=== PATIENT | male | born 1965 | race Caucasian/White ===

== ENCOUNTER 2016-03-24 13:04 | Emergency (ER) | payer OTHER ==
[~2016-03-24] VITALS: Ht 172.7 cm; Wt 71.4 kg
[~2016-03-24 13:04] MED LIST: OXYCODONE HCL5 MG PO; OXYCODONE-APAP1 EACH PO; PERCOCET 5/31 TABLET PO; ULTRAM50 MG PO
[2016-03-24 15:04] LABS: HEMATOCRIT 37.8 % (38.0-50.0); MCH 28.2 PG (29.0-34.0); MCHC 33.1 G/DL (30.0-36.0); MCV 85.3 FL (86-99); MEAN PLAT.VOLUME 9.8 uM^3 (9.0-12.4); PLATELET COUNT 280 K/uL (156-360); RBC DIS.WIDTH-CV 15.1 % (11.8-14.6); RBC DIS.WIDTH-SD 46.5 % (39-53); RED BLOOD COUNT 4.43 M/uL (4.00-5.50); WHITE BLOOD COUNT 20.1 K/uL (4.1-10.2)
[2016-03-24 15:16] LABS: CHLORIDE 102 mEq/L (99-109); POTASSIUM 4.4 mEq/L (3.7-5.4); SODIUM 135 mEq/L (136-147)
[2016-03-24 15:18] LABS: GLUCOSE 115 mg/dL (70-99)
[2016-03-24 15:19] LABS: ANION GAP 10 MEQ/L (2-14)
[2016-03-24 15:22] LABS: GFR ESTIMATE (CALCULATED) > 59 mL/min/
[2016-03-24 15:23] LABS: UREA NITROGEN (BUN) 7 mg/dL (9-23)
[2016-03-24] MEDS ORDERED: DOXYCYCLINE HY100 MG PO (17:59)
[2016-03-24] MEDS ORDERED: NORCO 5/3251 TABLET PO (17:59)
[2016-03-24] MEDS ORDERED: PERCOCET 5/31 TABLET PO (18:05)
[2016-03-24 18:25] VITALS: BP 125/58
== END 2016-03-24 18:26 | disposition home or self-care (01) ==
LOC: EME 13:04
PROVIDERS: Emergency Medicine
PROC: 0H9DXZZ Drainage of Right Lower Arm Skin, External Approach (ICD-10-PCS; principal; 2016-03-24)
DX: L02.413 Cutaneous abscess of right upper limb (principal); F17.200 Nicotine dependence, unspecified, uncomplicated
CPT/HCPCS: 76882; 80048; 83605; 85027; 99281; 99285; J1170; J7050

== ENCOUNTER 2016-10-01 14:46 | Emergency (ER) | payer OTHER ==
[~2016-10-01] VITALS: Ht 172.7 cm; Wt 70.0 kg
[~2016-10-01 14:46] MED LIST changes: +DOXYCYCLINE HY100 MG PO; +NORCO 5/3251 TABLET PO
[2016-10-01] MEDS ORDERED: NAPROSYN500 MG PO (17:13)
[2016-10-01] MEDS ORDERED: NORCO 5/3251 TABLET PO (17:13)
[2016-10-01] MEDS ORDERED: BACTRIM,SEPT1 TABLET PO (17:13)
[2016-10-01] MEDS ORDERED: KEFLEX500 MG PO (17:13)
[2016-10-01 17:31] VITALS: BP 112/74
== END 2016-10-01 17:33 | disposition home or self-care (01) ==
LOC: EME 14:46
DX: L02.414 Cutaneous abscess of left upper limb (principal)
CPT/HCPCS: 87070; 87075; 87205; 99281; 99284

== ENCOUNTER 2017-05-18 00:07 | Emergency (ER) | payer SELFPAY ==
[~2017-05-18] VITALS: Ht 172.7 cm; Wt 80.9 kg
[~2017-05-18 00:07] MED LIST changes: +BACTRIM,SEPT1 TABLET PO; +KEFLEX500 MG PO; +NAPROSYN500 MG PO
[2017-05-18] MEDS ORDERED: ZITHROMAX Z-PA250 MG PO (03:31)
[2017-05-18 03:35] VITALS: BP 145/75
== END 2017-05-18 03:36 | disposition home or self-care (01) ==
LOC: EME 00:07
DX: J06.9 Acute upper respiratory infection, unspecified (principal); F17.200 Nicotine dependence, unspecified, uncomplicated
CPT/HCPCS: 71046; 99281; 99284